=== PATIENT | female | born 1985 | race Caucasian/White ===

== ENCOUNTER 2023-08-16 08:39 | Outpatient (CLI) | payer BC, SELFPAY ==
[2023-08-16 16:38] LABS: Basophils Percent Auto 0.3 % (0.2-1.2); Eosinophils Absolute Auto 0.1 K/mm3 (0-0.3); Eosinophils Percent Auto 2.1 % (0-4.4); Hematocrit 42.9 % (37.0-47.0); Hemoglobin 14.3 g/dL (12.0-15.0); Immature Granulocyte Absolute 0.01 K/mm3 (0.00-0.031); Immature Granulocyte Percent A 0.3 % (0-0.5); Lymphocytes Absolute Auto 0.33 K/mm3 (0.9-3.2); Lymphocytes Percent Auto 8.6 % (18.3-44.2); Mean Corpuscular HGB Conc 33.3 g/dl (32-36); Mean Corpuscular Hemoglobin 29.7 pg (26-34); Mean Corpuscular Volume 89.2 fl (80-100); Mean Platelet Volume 11.5 fl (7.4-10.4); Monocytes Absolute Auto 0.5 K/mm3 (0.1-0.6); Monocytes Percent Auto 13.5 % (2.6-8.5); Neutrophils Absolute Auto 2.9 K/mm3 (1.3-6.7); Neutrophils Percent Auto 75.2 % (45.5-73.1); Platelet Count Result 213 k/mm3 (150-375); Red Blood Count 4.81 M/mm3 (4.2-5.4); Red Cell Distribution Width 12.6 % (11.5-14.5); White Blood Count 3.9 K/mm3 (4.5-10.0)
[2023-08-16 20:10] LABS: Alanine Aminotransferase 68 U/L (6-35); Albumin Level 4.5 g/dL (3.5-5.1); Alkaline Phosphatase 100 U/L (38-126); Amylase 79 U/L (30-110); Anion Gap 5 mmol/L (8-16); Aspartate Amino Transferase 52 U/L (14-36); Bilirubin,Total 0.9 mg/dL (0.2-1.3); Blood Urea Nitrogen 12 mg/dL (7-17); Calcium 9.3 mg/dL (8.4-10.2); Carbon Dioxide 31 mmol/L (22-30); Chloride 103 mmol/L (98-107); Estimated Glomerular Filt Rate > 60; Glucose 80 mg/dL (65-110); Lipase 147 U/L (23-300); Potassium 3.8 mmol/L (3.4-5.0); Sodium 139 mmol/L (137-145)
== END 2023-08-16 08:40 | disposition home or self-care (01) ==
LOC: ANHGOSHLAB 08:41
PROVIDERS: PCP Family Medicine; Visit Provider Nurse Practitioner Family
DX: E04.0 Nontoxic diffuse goiter (principal); R19.8 Other specified symptoms and signs involving the digestive system and abdomen
CPT/HCPCS: 36415; 80053; 82150; 83690; 84443; 85025

== ENCOUNTER → 2023-08-28 13:00 | Outpatient (CLI) | payer BC, SELFPAY ==
--- NOTE | ~2023-08-28 | US_ITS ---
Pelvic ultrasound. Clinical History: Pelvic pain Technique: Realtime transabdominal and transvaginal scanning of the pelvis was performed. Color flow Doppler and Doppler spectral analysis were performed. Findings: The uterus is retroverted. The endometrial stripe has a thickness of [address]. Probable ill-defined anterior wall fibroid measures up to 2.8 cm in diameter. The right ovary measures 3.4 x 4.4 x 3.2 cm. Simple right ovarian cyst measures 3.3 cm in diameter. The left ovary measures 2.6 x 2.3 x 3.0 cm. No significant left ovarian or adnexal mass is seen. Vascular flow present in both ovaries on Doppler spectral analysis. There is no evidence of free fluid in the cul de sac. Impression: IUD in place. 3.3 cm simple right ovarian cyst. Probable ill-defined fibroid, as above. Reviewed, dictated and finalized at [facility]. Impression: IUD in place. 3.3 cm simple right ovarian cyst. Probable ill-defined fibroid, as above.
== END ==
PROVIDERS: PCP Nurse Practitioner Family; Visit Provider Nurse Practitioner Family
DX: R19.8 Other specified symptoms and signs involving the digestive system and abdomen (principal); N83.291 Other ovarian cyst, right side; Z97.5 Presence of (intrauterine) contraceptive device
CPT/HCPCS: 76830; 76856

== ENCOUNTER → 2023-10-09 09:56 | Outpatient (CLI) | payer BC, SELFPAY ==
--- NOTE | ~2023-10-09 | US_ITS ---
US thyroid INDICATION: Nontoxic thyroid goiter TECHNIQUE: Real-time sonographic images of the thyroid gland were obtained. COMPARISON: No prior studies for comparison. FINDINGS: The right thyroid lobe measures 4.9 x 2 x 1.5 cm. The left thyroid lobe measures 3 x 1.4 x 1.1 cm. Thyroid gland is heterogeneous. In the right lobe there is a complex mixed solid and cystic hypoechoic, wider than tall, smoothly marginated mass without echogenic foci measuring 3 x 1.4 x 1.1 cm, TR 3. In the left lobe there is a cystic mass measuring 1.4 cm, likely benign. In addition, there is an oval hypoechoic 9 mm mass which appears solid, hypoechoic, wider than tall, smoothly marginated with punctate echogenic foci, TR 5. IMPRESSION: 1. Right thyroid mass measuring 3 cm, TR3. Ultrasound-guided fine-needle aspiration biopsy recommend ed. 2: Left thyroid mass, TR 3, measuring 9 mm. Recommend follow-up ultrasound in 12 months. Reviewed, dictated and finalized at [facility] IMPRESSION: 1. Right thyroid mass measuring 3 cm, TR3. Ultrasound-guided fine-needle aspir ation biopsy recommended. 2: Left thyroid mass, TR 3, measuring 9 mm. Recommend follow-up ultrasound in 1 2 months.
== END ==
PROVIDERS: PCP Physician Assistant; Visit Provider Physician Assistant
DX: E07.9 Disorder of thyroid, unspecified (principal); E04.0 Nontoxic diffuse goiter
CPT/HCPCS: 76536

== ENCOUNTER 2023-11-06 12:56 | Outpatient (CLI) | payer BC, SELFPAY ==
--- NOTE | ~2023-11-06 | US_ITS ---
EXAMINATION: US FNA w image guidance DATE: 11/06/2023 14:01 INDICATION: Right thyroid mass TECHNIQUE: A time-out was performed to verify the patient's name, date of , and procedure to be performed . The procedure and its benefits and risks were discussed with the patient. Risks specifically discus sed included bleeding and infection. The patient understood the risks and agreed to proceed. The neck was prepped and draped in the usual sterile manner. 4 mL 1% lidocaine was used for local anesthesia . 8 passes were made with a 25G needle into the lesion. Appropriate needle location was documented with continuous sonographic guidance. A sterile bandage was applied. There were no immediate compli cations. FINDINGS: Grayscale ultrasound images demonstrate biopsy needles advanced into a 2.8 cm predominantly solid rig ht thyroid mass. IMPRESSION: 1. Successful ultrasound-guided fine needle aspiration of the 2.8 cm predominantly solid right thyro id mass. Reviewed, dictated and finalized at location [facility] IMPRESSION: 1. Successful ultrasound-guided fine needle aspiration of the 2.8 cm predomina ntly solid right thyroid mass.
== END 2023-11-06 12:57 | disposition home or self-care (01) ==
PROVIDERS: PCP Physician Assistant; Visit Provider Physician Assistant
DX: E07.9 Disorder of thyroid, unspecified (principal)
CPT/HCPCS: 10005; 88172; 88173; 88305

== ENCOUNTER 2024-05-12 08:29 | Outpatient (CLI) | payer BC, SELFPAY ==
[2024-05-12 14:08] LABS: Free T4 Free Thyroxine 0.83 ng/mL (0.78-2.19)
[2024-05-13 09:39] LABS: Triiodothyronine T3 Free 3.1 pg/mL (2.3-4.2)
== END 2024-05-12 08:30 | disposition home or self-care (01) ==
LOC: ANHGOSHLAB 08:30
PROVIDERS: PCP Physician Assistant; Visit Provider Nurse Practitioner Family
DX: E04.0 Nontoxic diffuse goiter (principal)
CPT/HCPCS: 36415; 84439; 84443; 84481; 86800